=== PATIENT | male | born 1945 | race Caucasian/White ===

== ENCOUNTER → 2021-12-22 10:23 | Outpatient (CLI) | payer MEDICARE, OTHER, SELFPAY ==
--- NOTE | 2021-12-22 | DI.NM.S_ITS ---
PROCEDURE: [place] BONE SCAN WHOLE BODY RADIOPHARMACEUTICAL: 20.6 mCi Tc-99m MDP IV. INDICATIONS: Malignant neoplasm of prostate TECHNIQUE: Delayed whole-body scintigrams were obtained approximately 3-4 hours after intravenous injection of radiotracer. Anterior and posterior views were acquired from vertex to feet. Additional left and right oblique views of the pelvis were obtained. COMPARISON: [facility], CR, XR LUMBAR SPINE 2 OR 3 VIEWS, 12/04/2018, 8:56. [facility], CR, XR LUMBAR SPINE FLEXION EXTENSION, 12/24/2018, 8:41. [facility], MR, MR LUMBAR SPINE WITH/WITHOUT CONTRAST, 12/22/2018, 8:53. [facility], CT, CT ANGIO CHEST, 02/21/2021, 10:11. FINDINGS: Foci of mildly increased uptake in the anterior aspect of the right 6th, 7th and 8th ribs are present, most likely related to subacute rib fractures. No lesions are identified in skull, sternum, clavicles, scapulae, bony pelvis, and visualized shafts of the long bones. There are foci of increased uptake in cervical, thoracic and lumbar spine most likely secondary to degenerative disc and facet disease; early metastasis to spine could be obscured by degenerative changes. There are foci of increased periarticular activity involving, compatible with degenerative/arthritic changes. IMPRESSION: 1 No definitive scintigraphic findings to suggest osseous metastasis. 2. Suspect subacute right 6th, 7th, and 8th rib fractures. Recommend correlation with history of trauma. Dictated by: Luly Corbett M.D. on 12/22/2021 at 15:56 Approved by: Luly Corbett M.D. on 12/22/2021 at 18:35
== END ==
PROVIDERS: PCP Family Medicine
DX: C61 Malignant neoplasm of prostate (principal)
CPT/HCPCS: 78306; A9503

== ENCOUNTER → 2023-06-13 10:33 | Outpatient (CLI) | payer MEDICARE, OTHER, SELFPAY ==
--- NOTE | 2023-06-13 | DI.NM.S_ITS ---
PROCEDURE: [place] BONE SCAN WHOLE BODY RADIOPHARMACEUTICAL: 22 mCi Tc-99m MDP IV. INDICATIONS: Malignant neoplasm of prostate TECHNIQUE: Delayed whole-body scintigrams were obtained approximately 3-4 hours after intravenous injection of radiotracer. Anterior and posterior views were acquired from vertex to feet. COMPARISON: [place], [place], [place] BONE SCAN WHOLE BODY, 12/22/2021, 14:15. FINDINGS: Physiologic uptake is noted within the kidneys and bladder. There is increased uptake within the shoulder joints, knees, 1st CMC as well as angles and small bones of the feet bilaterally most consistent with degenerative change. Minimal punctate areas of uptake are identified within the spine appearing most likely related to degenerative change. IMPRESSION: Stable interval exam demonstrating no definitive findings of osseous metastatic disease. Dictated by: Clarice Angel M.D. on 06/13/2023 at 23:51 Approved by: Clarice Angel M.D. on 06/13/2023 at 23:53
== END ==
LOC: NUCM 10:35
PROVIDERS: PCP Family Medicine; Referring Provider Internal Medicine Hematology & Oncology; Visit Provider Internal Medicine Hematology & Oncology
DX: C61 Malignant neoplasm of prostate (principal)
CPT/HCPCS: 78306; A9503